=== PATIENT | female | born 1995 | race Two or more races ===

== ENCOUNTER → 2020-11-24 | Day surgery (SDC) | payer OTHER | END | disposition home or self-care (01) | LOC: JRADIR 09:25 | PROVIDERS: ATTEND Obstetrics & Gynecology | PROC: BU18YZZ Fluoroscopy of Uterus and Fallopian Tubes using Other Contrast (ICD-10-PCS; principal; 2020-11-24) | DX: N97.9 Female infertility, unspecified (principal) | CPT/HCPCS: 58340; 74740-TC-FY; 76000-TC-FY; 84703 ==

== ENCOUNTER 2021-02-02 14:20 | Emergency (ER) | payer OTHER ==
[2021-02-02 14:35] VITALS: BP 102/67; PULSE 90; TEMP 97.9; BMI 25.4
[2021-02-02 16:26] LABS: BASO % 0.3 % (0-2.0); EOS % 1.4 % (0-4.5); HEMATOCRIT 38.2 % (32.4-45.2); LYMPH % 23.3 % (8-40); MCH 27.1 pg (25.7-33.7); MCHC 34.1 g/dl (32.0-36.0); MEAN CELL VOLUME 79.5 fl (80-96); MEAN PLT VOLUME 7.8 fl (7.5-11.1); MONO % 6.2 % (3.8-10.2); NEUT % 68.8 % (42.8-82.8); PLATELET COUNT 354 K/MM3 (134-434); RBC 4.81 M/mm3 (3.60-5.2); RDW 14.1 % (11.6-15.6); WHITE BLOOD COUNT 13.2 K/mm3 (4.0-10.0)
[2021-02-02 16:36] LABS: PH,URINE 6.5 (5.0-8.0); URINE APPEARANCE CLOUDY; URINE BILIRUBIN NEGATIVE (NEGATIVE); URINE COLOR YELLOW; URINE GLUCOSE (UA) NEGATIVE (NEGATIVE); URINE KETONE 1+ (NEGATIVE); URINE LEUK ESTERASE NEGATIVE (NEGATIVE); URINE NITRITE NEGATIVE (NEGATIVE); URINE PROTEIN NEGATIVE (NEGATIVE); URINE UROBILINOGEN 0.2 mg/dL (0.2-1.0)
[2021-02-02 16:51] LABS: ALBUMIN 4.2 g/dl (3.4-5.0); BLOOD UREA NITROGEN 7.2 mg/dL (7-18); CALCIUM 9.4 mg/dL (8.5-10.1)
[2021-02-02 16:54] LABS: CREATININE 0.6 mg/dL (0.55-1.3)
[2021-02-02 16:56] LABS: TOT PROT 8.2 g/dl (6.4-8.2)
[2021-02-02 17:07] LABS: HCG,QUALITATIVE URINE POSITIVE
== END 2021-02-02 18:10 | disposition home or self-care (01) ==
LOC: JER 14:20
DX: O26.899 Other specified pregnancy related conditions, unspecified trimester (principal); R10.9 Unspecified abdominal pain; Z3A.01 Less than 8 weeks gestation of pregnancy
CPT/HCPCS: 36415; 76830-TC; 80053; 81003; 84702; 84703; 85025; 87086; 99284-25

== ENCOUNTER 2021-02-28 10:48 | Emergency (ER) | payer OTHER ==
[2021-02-28 10:54] VITALS: BP 99/58; PULSE 100; TEMP 97.2; BMI 24.5
== END 2021-02-28 12:05 | disposition home or self-care (01) ==
LOC: JER 10:48 → JERFT 10:48
DX: L05.01 Pilonidal cyst with abscess (principal)
CPT/HCPCS: 99283-25

== ENCOUNTER 2021-03-03 10:00 | Emergency (ER) | payer OTHER ==
[2021-03-03 10:13] VITALS: BP 94/59; PULSE 82; TEMP 98.6; BMI 24.5
== END 2021-03-03 11:14 | disposition home or self-care (01) ==
LOC: JER 10:00
PROC: 0H98XZZ Drainage of Buttock Skin, External Approach (ICD-10-PCS; principal; 2021-03-03)
DX: L05.91 Pilonidal cyst without abscess (principal); Z48.00 Encounter for change or removal of nonsurgical wound dressing
CPT/HCPCS: 87070; 87186; 87205; 99282-25

== ENCOUNTER 2021-05-10 14:28 | Emergency (ER) | payer OTHER ==
[2021-05-10 14:54] VITALS: BP 91/48; PULSE 63; TEMP 98.4; BMI 25.0
[2021-05-10] MEDS ORDERED: LIDOCAINE HCL 1%, 10 MG/ML (20ML VIAL) ONE (17:21)
[2021-05-10] MEDS ORDERED: ACETAMINOPHEN 325 MG TABLET (FP) PO ONE (19:04)
== END 2021-05-10 19:10 | disposition home or self-care (01) ==
LOC: JERFT 14:28
PROC: 0H98XZZ Drainage of Buttock Skin, External Approach (ICD-10-PCS; principal; 2021-05-10)
DX: L05.01 Pilonidal cyst with abscess (principal)
CPT/HCPCS: 10060; 99283-25

== ENCOUNTER 2021-05-12 09:49 | Emergency (ER) | payer OTHER ==
[2021-05-12 09:59] VITALS: BP 98/62; PULSE 75; TEMP 98.3; BMI 24.3
== END 2021-05-12 11:17 | disposition home or self-care (01) ==
LOC: JERFT 09:49
DX: Z48.00 Encounter for change or removal of nonsurgical wound dressing (principal)
CPT/HCPCS: 99281-25

== ENCOUNTER 2021-05-14 09:46 | Emergency (ER) | payer OTHER ==
[2021-05-14 10:01] VITALS: BP 90/54; PULSE 70; TEMP 98.1; BMI 24.4
[2021-05-14] MEDS ORDERED: BACITRACIN 15 GM TUBE TOPICAL OINTMENT ONE (10:27)
== END 2021-05-14 11:25 | disposition home or self-care (01) ==
LOC: JER 09:46 → JERFT 09:46
DX: L05.01 Pilonidal cyst with abscess (principal); Z48.01 Encounter for change or removal of surgical wound dressing
CPT/HCPCS: 99281-25

== ENCOUNTER 2021-09-14 10:26 | Inpatient (IN) | payer OTHER ==
[2021-09-15] MEDS ORDERED: ELECTROLYTE-148 SOLN 1,000 ML IV SCH (01:00)
[2021-09-15 02:02] LABS: INR 0.98 (0.83-1.09); PROTHROMBIN TIME (PATIENT) 11.5 SEC (9.7-13.0)
[2021-09-15 02:04] LABS: ACTIVATED PTT 26.1 SECONDS (25.2-36.5)
[2021-09-15 02:11] LABS: BASO % 0.4 % (0-2.0); EOS % 0.2 % (0-4.5); HEMOGLOBIN 10.5 GM/dL (10.7-15.3); LYMPH % 12.9 % (8-40); MCH 22.1 pg (25.7-33.7); MCHC 32.8 g/dl (32.0-36.0); MEAN CELL VOLUME 67.4 fl (80-96); MEAN PLT VOLUME 7.8 fl (7.5-11.1); NEUT % 81.5 % (42.8-82.8); PLATELET COUNT 381 10^3/uL (134-434); RBC 4.75 M/mm3 (3.60-5.2); RDW 18.3 % (11.6-15.6); WHITE BLOOD COUNT 16.4 K/mm3 (4.0-10.0)
[2021-09-15] MEDS ORDERED: PCA PUMP NR ONE ×2 (02:15→06:22)
[2021-09-15] MEDS ORDERED: FENTANYL/BUPIVACAINE/NS/PF - PCEA - 50 ML DISP.SYRIN EP ONE (02:15)
[2021-09-15 02:19] LABS: CALCIUM 8.6 mg/dL (8.5-10.1)
[2021-09-15 02:20] LABS: BLOOD UREA NITROGEN 5.7 mg/dL (7-18)
[2021-09-15 02:23] LABS: CREATININE 0.5 mg/dL (0.55-1.3)
[2021-09-15 02:31] VITALS: BMI 28.3
[2021-09-15] MEDS ORDERED: BUPIVACAINE HCL/PF 0.25% (2.5MG/ML) 10 ML VIAL ONE (02:31)
[2021-09-15] MEDS ORDERED: NALOXONE HCL 0.4 MG/ML VIAL IVPUSH PRN (02:52)
[2021-09-15] MEDS ORDERED: FENTANYL/BUPIVACAINE/NS/PF - PCEA - 50 ML DISP.SYRIN EP SCH (03:00)
[2021-09-15 03:17] LABS: HIV INTERPRETATION NEGATIVE (NEGATIVE)
[2021-09-15] MEDS ORDERED: OXYTOCIN 20 UNITS in 0.9% NS 20 UNIT/1,000 ML INFUS.BAG IV ONE ×2 (04:52→07:56)
[2021-09-15] MEDS ORDERED: LIDOCAINE HCL 1% PRESERVATIVE FREE - 30ML VIAL ONE (04:53)
[2021-09-15] MEDS: OXYTOCIN 20 UNITS in 0.9% NS 20 UNIT/1,000 ML INFUS.BAG IV SCH ×2 (06:50→08:00)
[2021-09-15] MEDS ORDERED: BENZOCAINE 20% 57 GM BOTTLE TP PRN (06:53)
[2021-09-15] MEDS ORDERED: WITCH HAZEL 50% (TUCKS) 40 PAD/JAR PAD TP PRN (06:53)
[2021-09-15] MEDS ORDERED: METHYLERGONOVINE MALEATE 0.2 MG/1 ML AMP IM PRN (06:53)
[2021-09-15] MEDS ORDERED: BENZOCAINE 28 GM HEMORRHOIDAL OINTMENT TP PRN (06:53)
[2021-09-15] MEDS ORDERED: BISACODYL 10 MG SUPP.RECT RC PRN (06:53)
[2021-09-15] MEDS ORDERED: ACETAMINOPHEN 325 MG TABLET (FP) ONE (07:27)
[2021-09-15] MEDS ORDERED: IBUPROFEN 600 MG TABLET (FP) PO ONE (07:27)
[2021-09-15] MEDS: IBUPROFEN 600 MG TABLET (FP) PO PRN ×2 (07:33→16:57)
[2021-09-15] MEDS: ACETAMINOPHEN 325 MG TABLET (FP) PO PRN (07:33)
[2021-09-15] MEDS: PRENATAL VITAMINS W/ FOLIC ACID TABLET (FP) PO SCH (15:47)
[2021-09-16] MEDS: IBUPROFEN 600 MG TABLET (FP) PO PRN ×5 (00:38→23:05)
[2021-09-16 07:11] LABS: BASO % 0.3 % (0-2.0); EOS % 1.7 % (0-4.5); HEMATOCRIT 27.3 % (32.4-45.2); LYMPH % 27.5 % (8-40); MCH 22.5 pg (25.7-33.7); MEAN CELL VOLUME 68.3 fl (80-96); MEAN PLT VOLUME 7.3 fl (7.5-11.1); MONO % 6.2 % (3.8-10.2); NEUT % 64.3 % (42.8-82.8); PLATELET COUNT 323 10^3/uL (134-434); RBC 3.99 M/mm3 (3.60-5.2); RDW 18.6 % (11.6-15.6); WHITE BLOOD COUNT 13.1 K/mm3 (4.0-10.0)
[2021-09-16] MEDS: PRENATAL VITAMINS W/ FOLIC ACID TABLET (FP) PO SCH (09:30)
[2021-09-16 20:59] VITALS: TEMP 98.3
[2021-09-16] MEDS ORDERED: SENNOSIDES/DOCUSATE COMBO (SENNA PLUS) TABLET (UD) PO PRN (22:00)
[2021-09-17] MEDS: ACETAMINOPHEN 325 MG TABLET (FP) PO PRN ×2 (02:56→09:16)
[2021-09-17] MEDS: IBUPROFEN 600 MG TABLET (FP) PO PRN ×2 (02:56→09:15)
[2021-09-17 08:35] VITALS: BP 109/47; PULSE 70
[2021-09-17] MEDS: PRENATAL VITAMINS W/ FOLIC ACID TABLET (FP) PO SCH (09:13)
== END 2021-09-17 12:10 | disposition home or self-care (01) | DRG 560 ==
LOC: JDEL 10:26 → JLDR 22:26 → J3W 09-15 09:21
PROVIDERS: ADMIT Obstetrics & Gynecology; ATTEND Obstetrics & Gynecology
PROC: 10E0XZZ Delivery of Products of Conception, External Approach (ICD-10-PCS; principal; 2021-09-15)
PROC: 0KQM0ZZ Repair Perineum Muscle, Open Approach (ICD-10-PCS; 2021-09-15)
PROC: 0W8NXZZ Division of Female Perineum, External Approach (ICD-10-PCS; 2021-09-15)
DX: O70.1 Second degree perineal laceration during delivery (principal); O99.013 Anemia complicating pregnancy, third trimester; Z3A.39 39 weeks gestation of pregnancy; Z37.0 Single live birth
CPT/HCPCS: 36415; 59025; 59409; 80048; 85025; 85610; 85730; 86780; 86850; 86900; 86901; 87389; 87517; C9803; U0003; U0005

== ENCOUNTER 2021-12-07 09:19 | Emergency (ER) | payer OTHER ==
[2021-12-07 09:32] VITALS: BP 101/62; PULSE 91; TEMP 98; BMI 28.3
== END 2021-12-07 12:21 | disposition home or self-care (01) ==
LOC: JERFT 09:19
PROC: 0H96XZZ Drainage of Back Skin, External Approach (ICD-10-PCS; principal; 2021-12-07)
DX: L05.01 Pilonidal cyst with abscess (principal)
CPT/HCPCS: 10061; 99283-25

== ENCOUNTER 2021-12-09 12:47 | Emergency (ER) | payer OTHER ==
[2021-12-09 13:15] VITALS: BP 100/65; PULSE 86; TEMP 98.3; BMI 26.0
== END 2021-12-09 14:43 | disposition home or self-care (01) ==
LOC: JERFT 12:47
DX: L05.91 Pilonidal cyst without abscess (principal); Z48.01 Encounter for change or removal of surgical wound dressing
CPT/HCPCS: 99281-25

== ENCOUNTER 2025-02-21 19:40 | Emergency (ER) | payer OTHER ==
[2025-02-21 19:50] VITALS: BP 128/62; PULSE 65; RESP 17; TEMP 97.8; BMI 28.3
[2025-02-21] MEDS ORDERED: diazePAM 5 MG TABLET ONE (21:53)
[2025-02-21] MEDS ORDERED: KETOROLAC TROMETHAMINE 30 MG/1 ML VIAL ONE (21:53)
[2025-02-21] MEDS: KETOROLAC TROMETHAMINE 30 MG/1 ML VIAL IM ONE (21:58)
[2025-02-21] MEDS: diazePAM 5 MG TABLET PO ONE (22:04)
== END 2025-02-21 22:58 | disposition home or self-care (01) ==
LOC: JERFT 19:40 → JER 19:40
PROC: 3E0233Z Introduction of Anti-inflammatory into Muscle, Percutaneous Approach (ICD-10-PCS; principal; 2025-02-21)
DX: M54.50 Low back pain, unspecified (principal)
CPT/HCPCS: 36415; 84703; 99284-25